=== PATIENT | male | born 1970 | race Caucasian/White ===

== ENCOUNTER 2016-12-30 11:14 | Inpatient (IN) | payer OTHER ==
[~2016-12-30] VITALS: Ht 167.6 cm; Wt 71.7 kg
[2016-12-30 11:15] VITALS: BP 114/82
[2016-12-30] MEDS ORDERED: MIRTAZAPINE45 MG (11:20)
[2016-12-30] MEDS ORDERED: KLONOPIN1 MG (11:20)
[2016-12-30] MEDS ORDERED: FAZACLO100 MG (11:20)
[2016-12-30] MEDS ORDERED: TRAZODONE HCL100 MG (11:20)
[2016-12-30] MEDS ORDERED: ARISTADA882 MG/3.2 (11:20)
[2016-12-30] MEDS ORDERED: Vancomycin 1 GM in D5W 275 ML IVPB ONE (11:30)
[2016-12-30] MEDS ORDERED: Vancomycin 1gm inj IVPB ONE (12:32)
[2016-12-30 12:39] LABS: APPEARANCE,URINE CLEAR; KETONES,URINE 3+ (NEGATIVE); LEUKOCYTE ESTERASE ,URINE 1+ (NEGATIVE); NITRITE,URINE NEGATIVE (NEGATIVE); PH,URINE 5 (4.5-8.0); PROTEIN,URINE 1+ (NEGATIVE); UROBILINOGEN,URINE 4 MG/DL (0.0-1.0)
[2016-12-30 12:40] LABS: BASOPHILS % (AUTO) 0.9 % (0.0-2.0); LYMPHOCYTES % (AUTO) 39.7 % (20.0-45.0); MEAN CORPUSCULAR HGB CONC 34.9 G/DL (32.0-36.0); MEAN CORPUSCULAR VOLUME 89 FL (80-99); MEAN PLATELET VOLUME 6.5 FL (6.5-10.1); MONOCYTES % (AUTO) 8.1 % (1.0-10.0); NEUTROPHILS % (AUTO) 51.3 % (45.0-75.0); PLATELET COUNT 194 K/UL (150-450); RED CELL DISTRIBUTION WIDTH 11.9 % (11.6-14.8); WHITE BLOOD COUNT 5.2 K/UL (4.8-10.8)
[2016-12-30 12:47] LABS: PROTHROMBIN TIME 10.5 SEC (9.30-11.50)
[2016-12-30 12:50] LABS: BACTERIA,URINE FEW /HPF; SQUAMOUS EPITHELIAL CELL,UR OCCASIONAL /LPF (NONE/OCC)
[2016-12-30 12:51] LABS: ICTOTEST NEGATIVE; MUCUS,URINE MODERATE /LPF (NONE/OCC)
--- NOTE | 2016-12-30 12:51 | Diagnostic Imaging Report ---
Indication: COUGH Technique: One view of the chest Comparison: none Findings: Lungs and pleural spaces are clear. Heart size is normal. Impression: No acute process
[2016-12-30 13:03] LABS: ALANINE AMINOTRANSFERASE 30 U/L (3-41); ALBUMIN/GLOBULIN RATIO 1.9 (1.0-2.7); ANION GAP 16 (5-15); ASPARTATE AMINO TRANSFERASE 45 U/L (5-40); CALCIUM 9.2 mg/dL (8.6-10.2); CARBON DIOXIDE 25 mEQ/L (20-30); CHLORIDE 101 mEQ/L (98-107); CREATININE 0.9 mg/dL (0.7-1.2); GLOMERULAR FILTRATION RATE > 60 mL/min (>60); HEMOLYSIS 26; LIPASE 28 U/L (< 60); POTASSIUM 3.5 mEQ/L (3.4-4.9); SODIUM 142 mEQ/L (135-145); TOTAL PROTEIN 6.4 g/dL (6.6-8.7)
[2016-12-30 13:23] LABS: CKMB 13.1 ng/mL (< 6.7)
[2016-12-30 13:37] LABS: TROPONIN I < 0.30 ng/mL (<=0.30)
[2016-12-30 13:44] LABS: BILIRUBIN,DIRECT 0.2 mg/dL (0.1-0.3)
--- NOTE | 2016-12-30 14:14 | Emergency Room Report ---
History of Present Illness General Chief Complaint: Overdose Source: Patient, EMS Present Illness HPI Patient presents emergency department today with acute altered mental status. Patient reportedly has a history of drug or psychiatric history. Was at a center to obtain reimbursement or medications. Developed acute onset of altered mental status and was brought here for further evaluation. Patient apparently had a history of fall and has a wound on his right side of the face that is poorly healing cellulitic and erythematous. Patient denies any discharge. No other complaints are noted. Symptoms noted to be moderate to severe.No other modifying factors. No other associated signs and symptoms. No other complaints were noted. Allergies: Coded Allergies: No Known Allergies (Unverified , 12/30/16) Patient History Past Medical History: psych hx Past Surgical History: none Pertinent Family History: none Social History: Reports: drug use Reviewed Nursing Documentation: PMH: Agreed, PSxH: Agreed Nursing Documentation-PMH History Of Psychiatric Problem: Yes Review of Systems All Other Systems: negative except mentioned in HPI Physical Exam Vital Signs Date Time Temp Pulse Resp B/P Pulse Ox O2 Delivery O2 Flow Rate FiO2 12/30/16 11:08 97.3 98 16 114/82 98 Room Air Sp02 EP Interpretation: reviewed, normal General Appearance: moderate distress, lethargic Head: normocephalic, atraumatic Eyes: bilateral eye normal inspection ENT: hearing grossly normal, normal voice, other - right facial swelling, poorly healing wound Neck: normal inspection, full range of motion, supple, no bony tend Respiratory: normal inspection, lungs clear, normal breath sounds, no respiratory distress, no retraction, no wheezing Cardiovascular #1: regular rate, rhythm, no edema Gastrointestinal: normal inspection, normal bowel sounds, non tender, soft, no guarding, no hernia Genitourinary: no CVA tenderness Musculoskeletal: normal inspection, back normal, normal range of motion Neurologic: responsive, other - altered mental status, grossly nonfocal Psychiatric: depressed affect Skin: other - rash right-sided face consistent with cellulitis Medical Decision Making Diagnostic Impression: Primary Impression: Facial cellulitis Additional Impressions: Altered mental status, unspecified Drug abuse Rhabdomyolysis ER Course Patient presents emergency department today with acute altered mental status. Differential diagnoses include acute intracranial injury, facial fracture, facial infection, sepsis, drug abuse, seizure, electrolyte abnormality just to name a few.Given the severity of the patient's presentation I felt this is a highly complex patient. This patient required extensive workup. Patient exam is consistent with facial cellulitis. CT of the brain and face did not show any acute abnormality other than facial cellulitis. Patient was started on vancomycin. Patient had evidence rhabdomyolysis and was given a liter fluid bolus. A she remained confused in emergency Department likely secondary to drug abuse. Therefore felt the patient require admission. Patient will be admitted to telemetry for further treatment. Case was discussed with Dr. Joe Chamberlain for admission. Labs Test 12/30/16 12:20 White Blood Count 5.2 K/UL (4.8-10.8) Red Blood Count 4.10 M/UL (4.70-6.10) Hemoglobin 12.7 G/DL (14.2-18.0) Hematocrit 36.4 % (42.0-52.0) Mean Corpuscular Volume 89 FL (80-99) Mean Corpuscular Hemoglobin 31.0 PG (27.0-31.0) Mean Corpuscular Hemoglobin Concent 34.9 G/DL (32.0-36.0) Red Cell Distribution Width 11.9 % (11.6-14.8) Platelet Count 194 K/UL (150-450) Mean Platelet Volume 6.5 FL (6.5-10.1) Neutrophils (%) (Auto) 51.3 % (45.0-75.0) Lymphocytes (%) (Auto) 39.7 % (20.0-45.0) Monocytes (%) (Auto) 8.1 % (1.0-10.0) Eosinophils (%) (Auto) 0.0 % (0.0-3.0) Basophils (%) (Auto) 0.9 % (0.0-2.0) Prothrombin Time 10.5 SEC (9.30-11.50) Prothromb Time International Ratio 1.0 (0.9-1.1) Activated Partial Thromboplast Time 24 SEC (23-33) Urine Color Yellow Urine Appearance Clear Urine pH 5 (4.5-8.0) Urine Specific [place] 1.030 (1.005-1.035) Urine Protein 1+ (NEGATIVE) Urine Glucose (UA) Negative (NEGATIVE) Urine Ketones 3+ (NEGATIVE) Urine Occult Blood Negative (NEGATIVE) Urine Nitrite Negative (NEGATIVE) Urine Bilirubin 1+ (NEGATIVE) Urine Ictotest Negative Urine Urobilinogen 4 MG/DL (0.0-1.0) Urine Leukocyte Esterase 1+ (NEGATIVE) Urine RBC 2-4 /HPF (0 - 0) Urine WBC 2-4 /HPF (0 - 0) Urine Squamous Epithelial Cells Occasional /LPF Urine Bacteria Few /HPF (NONE) Urine Mucus Moderate /LPF (NONE/OCC) Sodium Level 142 mEQ/L (135-145) Potassium Level 3.5 mEQ/L (3.4-4.9) Chloride Level 101 mEQ/L (98-107) Carbon Dioxide Level 25 mEQ/L (20-30) Anion Gap 16 (5-15) Blood Urea Nitrogen 19 mg/dL (7-23) Creatinine 0.9 mg/dL (0.7-1.2) Estimat Glomerular Filtration Rate > 60 mL/min (>60) Glucose Level 102 mg/dL (74-106) Calcium Level 9.2 mg/dL (8.6-10.2) Total Bilirubin 1.2 mg/dL (0.0-1.2) Direct Bilirubin 0.2 mg/dL (0.1-0.3) Aspartate Amino Transf (AST/SGOT) 45 U/L (5-40) Alanine Aminotransferase (ALT/SGPT) 30 U/L (3-41) Alkaline Phosphatase 72 U/L (40-129) Total Creatine Kinase 1166 U/L (38-174) Creatine Kinase MB 13.1 ng/mL (< 6.7) Creatine Kinase MB Relative Index 1.1 Troponin I < 0.30 ng/mL (<=0.30) Total Protein 6.4 g/dL (6.6-8.7) Albumin 4.2 g/dL (3.5-5.2) Globulin 2.2 g/dL Albumin/Globulin Ratio 1.9 (1.0-2.7) Lipase 28 U/L (< 60) Urine Opiates Screen Negative (NEGATIVE) Urine Barbiturates Screen Negative (NEGATIVE) Phencyclidine (PCP) Screen Negative (NEGATIVE) Urine Amphetamines Screen Positive (NEGATIVE) Urine Benzodiazepines Screen Positive (NEGATIVE) Urine Cocaine Screen Negative (NEGATIVE) Urine Marijuana (THC) Screen Positive (NEGATIVE) EKG Diagnostic Results Rate: normal Rhythm: NSR ST Segments: no acute changes Rhythm Strip Diag. Results EP Interpretation: yes Rate: 60s Rhythm: NSR, no PVC's, no ectopy Chest X-Ray Diagnostic Results Chest X-Ray Ordered: Yes # of Views/Limited/Complete: 1 View Interpretation: no consolidation, no effusion, no pneumothorax, no acute cardiopulmonary disease Indication: Chest Pain Impression: No acute disease Date Electronically Signed: Dec 30, 2016 Time Electronically Signed: 14:14 Interpreting ER Physician: by radiology Last Vital Signs Date Time Temp Pulse Resp B/P Pulse Ox O2 Delivery O2 Flow Rate FiO2 12/30/16 11:15 98 16 Room Air 12/30/16 11:15 97.3 114/82 98 Status: improved Disposition: ADMITTED INPATIENT Condition: Serious Referrals: [facility],REFERRING (PCP) NICK CEDEÑO M.D. Dec 30, 2016 14:14
[2016-12-30 14:21] VITALS: BP 112/61
--- NOTE | 2016-12-30 15:17 | Diagnostic Imaging Report ---
Indication: TRAUMA altered level of consciousness, lethargic, overdose Technique: Continuous helical CT scanning of the head was performed without intravenous contrast material. Axial and coronal 5 mm sections were generated. Radiation dose was minimized using automated exposure control Dose: Total Dose Length Product - DLP [address] Dose Index - CTDIvol(s) 70.38 mGy. Comparison: None Findings: The ventricular system is normal in size and configuration. There is no shift of midline structures. No abnormal extra-axial fluid collections are noted. There is no evidence of intracerebral bleeding. No other abnormal high or low density areas are noted within the brain. The included orbits and sinuses are unremarkable. The calvarium is intact. There is right periorbital soft tissue swelling. Possible small radiopaque foreign bodies versus cutaneous calcifications are seen in the subcutaneous tissues in this area. There is a chronic appearing medial right orbital wall defect Impression: Negative for acute intracranial bleed or mass effect Other findings as described The CT scanner at [facility] is accredited by the [employer] and the scans are performed using protocols designed to limit radiation exposure to as low as reasonably achievable to attain images of sufficient resolution adequate for diagnostic evaluation.
--- NOTE | 2016-12-30 15:17 | Diagnostic Imaging Report ---
Indications: TRAUMA, facial abrasion Technique: Spiral images obtained through the facial bones. No IV contrast utilized. Multiplanar reconstructions were generated.Total dose length product 630 mGycm. CTDIvol(s) 28mGy. Dose reduction achieved using automated exposure control Comparison: None Findings: There is some image degradation due to patient motion. Surgical hardware seen reducing old healed right mandibular ramus and left mandibular body fractures. No acute fractures. There is questionably an old zygomatic arch fracture deformity on the left. There is the medial right orbital wall defect with fat herniated into the defect. The sinuses are clear. The nasal septum is midline. There is soft tissue swelling in the right malar and periorbital region. Small punctate opacities in the skin and subcutaneous region in the right malar region the area of swelling could indicate small foreign bodies. There is evidence of extensive dental disease. A large lucency surrounds the apex of the left mandibular canine tooth, consistent with apical root abscess. This measures approximately 1 cm diameter. There is evidence of extensive dental caries. Lucencies are seen involving the posterior maxillary alveolar ridge bilaterally, likely indicating molar apical root abscesses. The optic globes are intact. The retroseptal orbits are unremarkable. Impression: No acute bony trauma Evidence of right periorbital and malar soft tissue trauma. Small punctate foreign bodies are not excludable Evidence of extensive dental disease, as described above, including dental caries and multiple likely apical root abscesses Evidence of old trauma, with evidence of prior surgical repair of healed mandibular fractures,, right medial orbital wall defect which may be posttraumatic, and equivocal old left zygomatic arch fracture deformity. The CT scanner at [facility] is accredited by the [employer] and the scans are performed using protocols designed to limit radiation exposure to as low as reasonably achievable to attain images of sufficient resolution adequate for diagnostic evaluation.
[2016-12-30] MEDS ORDERED: Milk of Magnesia 30ml Ud ORAL PRN (17:15)
[2016-12-30 18:34] VITALS: BP 111/67
[2016-12-30 19:48] VITALS: BP 112/67
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
[2016-12-30 20:57] VITALS: BP 125/77
[2016-12-30] MEDS: Vancomycin 1250mg/D5W 275ml IVPB SCH ×2 (21:46)
[2016-12-30] MEDS: Heparin 5000 units/ml inj SUBQ SCH (21:59)
[2016-12-30] MEDS ORDERED: TRAZODONE HCL100 MG ORAL (23:50)
[2016-12-30] MEDS ORDERED: FAZACLO100 MG ORAL (23:50)
[2016-12-30] MEDS ORDERED: CLOZAPINE ODT100 MG PO (23:50)
[2016-12-30] MEDS ORDERED: MIRTAZAPINE45 MG ORAL (23:50)
[2016-12-30] MEDS ORDERED: KLONOPIN1 MG ORAL (23:50)
[2016-12-30 23:54] VITALS: BP 127/68
[2016-12-30] MEDS ORDERED: ARISTADA882 MG/3.2 PO (23:56)
[2016-12-31 04:06] VITALS: BP 121/75
[2016-12-31 07:07] LABS: BASOPHILS % (AUTO) 0.6 % (0.0-2.0); LYMPHOCYTES % (AUTO) 30.6 % (20.0-45.0); MEAN CORPUSCULAR HEMOGLOBIN 31.6 PG (27.0-31.0); MEAN CORPUSCULAR HGB CONC 35.4 G/DL (32.0-36.0); MEAN CORPUSCULAR VOLUME 89 FL (80-99); NEUTROPHILS % (AUTO) 61.8 % (45.0-75.0); PLATELET COUNT 179 K/UL (150-450); RED BLOOD COUNT 3.68 M/UL (4.70-6.10); RED CELL DISTRIBUTION WIDTH 12.1 % (11.6-14.8); WHITE BLOOD COUNT 5.1 K/UL (4.8-10.8)
[2016-12-31 07:47] LABS: ALANINE AMINOTRANSFERASE 21 U/L (3-41); ALBUMIN/GLOBULIN RATIO 1.6 (1.0-2.7); ANION GAP 12 (5-15); ASPARTATE AMINO TRANSFERASE 23 U/L (5-40); CALCIUM 8.1 mg/dL (8.6-10.2); CARBON DIOXIDE 25 mEQ/L (20-30); CHLORIDE 107 mEQ/L (98-107); CREATININE 0.8 mg/dL (0.7-1.2); GLOMERULAR FILTRATION RATE > 60 mL/min (>60); HEMOLYSIS 2; POTASSIUM 3.6 mEQ/L (3.4-4.9); SODIUM 144 mEQ/L (135-145); TOTAL PROTEIN 5.1 g/dL (6.6-8.7)
[2016-12-31 08:00] VITALS: BP 96/65
[2016-12-31] MEDS ORDERED: ARISTADA882 MG/3.2 IM (10:33)
[2016-12-31] MEDS ORDERED: CLOZAPINE ODT200 MG PO ×2 (10:46→11:12)
[2016-12-31] MEDS: Vancomycin 1250mg/D5W 275ml IVPB SCH ×4 (11:27→20:46)
[2016-12-31] MEDS: Heparin 5000 units/ml inj SUBQ SCH ×2 (11:27→20:46)
--- NOTE | 2016-12-31 11:28 | Wound Care Consultation ---
Wound Assessment Wound Assessment #1: Wound Present on Admission: Yes New Wound: No Status Change of Wound: No Wound Location Body Site Modif: right Wound Location Body Site: face - extending to periorbital and upper cheek area. Wound Type: traumatic injury - with possible cellulitis , etiology unknown. Lebron Test: Does not Lebron Wound Thickness: Full Thickness Wound Length: 9.0 Wound Width: 8.0 Wound Depth: utd Percent of Wound [place]/Red: 50 Percent of Wound Black/Brown: 50 - scab Wound Drainage Description: Serosanguineous Wound Drainage Amount: Scant Wound Drainage Odor: None/Absent Tissue Surrounding Wound: Edematous - erythemic Wound General Appearance: Reddened, Blackened - scab, Draining Wound Assessment #2: Wound Number: #2 Wound Present on Admission: Yes New Wound: No Status Change of Wound: No Wound Location Body Site Modif: right Wound Location Body Site: knee Wound Type: traumatic injury - etiology unknown.with scab formation. Lebron Test: Does not Lebron Wound Thickness: Full Thickness Wound Length: 2.0 Wound Width: 2.0 Wound Depth: utd Percent of Wound [place]/Red: 50 Percent of Wound Black/Brown: 50 - scab Wound Drainage Description: Serosanguineous Wound Drainage Amount: Scant Wound Drainage Odor: None/Absent Tissue Surrounding Wound: Erythemic Wound General Appearance: Reddened, Blackened Wound Assessment #3: Wound Number: #3 Wound Present on Admission: Yes New Wound: No Status Change of Wound: No Wound Location Body Site Modif: left, lower Wound Location Body Site: leg Wound Type: traumatic injury - etiology unknown. with scab formation. Lebron Test: Does not Lebron Wound Thickness: Full Thickness Wound Length: 3.0 Wound Width: 2.0 Wound Depth: utd Percent of Wound [place]/Red: 50 Percent of Wound Black/Brown: 50 - scab Wound General Appearance: Reddened, Blackened Wound Assessment #4: Wound Number: #4 Wound Present on Admission: Yes New Wound: No Status Change of Wound: No Wound Location Body Site Modif: right Wound Location Body Site: hand Wound Type: scab - scattered. Lebron Test: Does not Lebron Wound Thickness: Partial Thickness Percent of Wound Black/Brown: 100 - scabs Wound Drainage Amount: None Wound Drainage Odor: None/Absent Tissue Surrounding Wound: Intact Wound General Appearance: Reddened, Blackened Wound Assessment #5: Wound Number: #5 Wound Present on Admission: Yes New Wound: No Status Change of Wound: No Wound Location Body Site Modif: left Wound Location Body Site: hand - and left 4th finger Wound Type: scab - scattered. Lebron Test: Does not Lebron Wound Thickness: Partial Thickness Percent of Wound Black/Brown: 100 - scabs Wound Drainage Amount: None Wound Drainage Odor: None/Absent Tissue Surrounding Wound: Intact Wound General Appearance: Reddened, Blackened Wound Comment #1 Right side face extending to periorbital and upper cheek traumatic injury with possible cellulitis. #2 Right knee traumatic injury with scab appearing. #3 Left lower leg traumatic injury with scab appearing. #4 Right hand scattered scabs. #5 Left hand and left 4th finger scattered scabs. Recommendation. - Local wound care as ordered. - Keep clean and dry. - Turn and reposition. - Offload affected sites. - Optimize nutrition. - Assess and notify MD for any changes of condition noted to skin. FLACO CORDERO Dec 31, 2016 11:28
[2016-12-31 12:00] VITALS: BP 101/54
--- NOTE | 2016-12-31 14:35 | General Progress Note ---
Assessment/Plan Problem List: (1) Schizophrenia ICD Codes: F20.9 - Schizophrenia, unspecified SNOMED: 43446951 (2) Bradycardia ICD Codes: R00.1 - Bradycardia, unspecified SNOMED: 99444691 (3) Drug abuse ICD Codes: F19.10 - Other psychoactive substance abuse, uncomplicated SNOMED: 62018774 (4) Rhabdomyolysis ICD Codes: M62.82 - Rhabdomyolysis SNOMED: 693277805 (5) Facial cellulitis ICD Codes: L03.211 - Cellulitis of face SNOMED: 152877167 (6) Altered mental status, unspecified ICD Codes: R41.82 - Altered mental status, unspecified SNOMED: 602974908 Assessment/Plan continue vanco, tele, check thyroid status Subjective Constitutional: Reports: weakness HEENT: Reports: no symptoms Cardiovascular: Reports: no symptoms Respiratory: Reports: no symptoms Gastrointestinal/Abdominal: Reports: no symptoms Genitourinary: Reports: no symptoms Neurologic/Psychiatric: Reports: pre-existing deficit Endocrine: Reports: no symptoms Hematologic/Lymphatic: Reports: no symptoms Allergies: Coded Allergies: No Known Allergies (Unverified , 12/30/16) Objective Last 24 Hour Vital Signs Date Time Temp Pulse Resp B/P Pulse Ox O2 Delivery O2 Flow Rate FiO2 12/31/16 12:00 97.5 54 18 101/54 95 Room Air 12/31/16 08:00 97.5 65 18 96/65 98 Room Air 12/31/16 04:06 98.6 70 20 121/75 94 Room Air 12/31/16 04:00 64 12/31/16 00:00 68 12/30/16 23:54 98.3 68 21 127/68 97 Room Air 12/30/16 20:57 97.6 60 20 125/77 98 Room Air 12/30/16 20:01 97.9 64 16 112/67 98 Room Air 12/30/16 19:48 97.9 64 16 112/67 98 Room Air 12/30/16 18:34 62 15 111/67 100 Room Air Intake and Output 12/30/16 12/31/16 19:00 07:00 Intake Total 1555.0 ml Output Total 500 ml Balance 1055.0 ml Intake Oral 240 ml IV Total 1315.0 ml Output Urine Total 500 ml # Voids 1 3 Laboratory Tests 12/31/16 05:15: White Blood Count 5.1, Red Blood Count 3.68L, Hemoglobin 11.6L, Hematocrit 32.8L , Mean Corpuscular Volume 89, Mean Corpuscular Hemoglobin 31.6H, Mean Corpuscular Hemoglobin Concent 35.4, Red Cell Distribution Width 12.1, Platelet Count 179, Mean Platelet Volume 7.0, Neutrophils (%) (Auto) 61.8, Lymphocytes (% ) (Auto) 30.6, Monocytes (%) (Auto) 7.0, Eosinophils (%) (Auto) 0.0, Basophils ( %) (Auto) 0.6, Sodium Level 144, Potassium Level 3.6, Chloride Level 107, Carbon Dioxide Level 25, Anion Gap 12, Blood Urea Nitrogen 14, Creatinine 0.8, Estimat Glomerular Filtration Rate > 60, Glucose Level 107H, Calcium Level 8.1L , Total Bilirubin 0.8, Aspartate Amino Transf (AST/SGOT) 23, Alanine Aminotransferase (ALT/SGPT) 21, Alkaline Phosphatase 58, Total Creatine Kinase 513H, Total Protein 5.1L, Albumin 3.2L, Globulin 1.9, Albumin/Globulin Ratio 1.6 Height (Feet): 5 Height (Inches): 6.00 Weight (Pounds): 158 General Appearance: no apparent distress EENT: PERRL/EOMI Neck: normal alignment Cardiovascular: regular rhythm, bradycardia Respiratory/Chest: lungs clear Abdomen: non tender Extremities: normal range of motion Edema: no edema noted Arm (L), no edema noted Arm (R), no edema noted Leg (L), no edema noted Leg (R), no edema noted Pedal (L), no edema noted Pedal (R), no edema noted Generalized Neurologic: program lead II-XII grossly normal, other - slow of speech Skin: other - scabs on face, mild redness, edema r periorbital ESTRELLA SINGLETON Dec 31, 2016 14:35
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
[2016-12-31 16:00] VITALS: BP 110/61
[2016-12-31 20:17] VITALS: BP 103/60
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
[2016-12-31 23:59] VITALS: BP 113/65
[2017-01-01 03:51] VITALS: BP 119/73
[2017-01-01 08:00] VITALS: BP 97/55
[2017-01-01 09:12] LABS: BASOPHILS % (AUTO) 0.4 % (0.0-2.0); EOSINOPHILS % (AUTO) 0.1 % (0.0-3.0); LYMPHOCYTES % (AUTO) 30.8 % (20.0-45.0); MEAN CORPUSCULAR HEMOGLOBIN 31.6 PG (27.0-31.0); MEAN CORPUSCULAR HGB CONC 34.9 G/DL (32.0-36.0); MEAN CORPUSCULAR VOLUME 91 FL (80-99); MEAN PLATELET VOLUME 7.2 FL (6.5-10.1); MONOCYTES % (AUTO) 6.4 % (1.0-10.0); NEUTROPHILS % (AUTO) 62.2 % (45.0-75.0); PLATELET COUNT 174 K/UL (150-450); RED BLOOD COUNT 3.66 M/UL (4.70-6.10); RED CELL DISTRIBUTION WIDTH 12.1 % (11.6-14.8); WHITE BLOOD COUNT 3.9 K/UL (4.8-10.8)
[2017-01-01 09:45] LABS: ANION GAP 12 (5-15); CALCIUM 8.7 mg/dL (8.6-10.2); CARBON DIOXIDE 25 mEQ/L (20-30); CHLORIDE 106 mEQ/L (98-107); CREATININE 0.8 mg/dL (0.7-1.2); GLOMERULAR FILTRATION RATE > 60 mL/min (>60); HEMOLYSIS 9; POTASSIUM 4.2 mEQ/L (3.4-4.9); SODIUM 143 mEQ/L (135-145)
[2017-01-01] MEDS ORDERED: Tubing IV Secondary IV ONE (09:58)
[2017-01-01] MEDS: ARIPiprazole 10mg tab ORAL SCH ×2 (10:01→17:32)
[2017-01-01] MEDS: Vancomycin 1250mg/D5W 275ml IVPB SCH ×2 (10:01)
[2017-01-01] MEDS: Heparin 5000 units/ml inj SUBQ SCH (10:04)
[2017-01-01 10:36] LABS: TROPONIN I < 0.30 ng/mL (<=0.30)
[2017-01-01 12:00] VITALS: BP 114/69
[2017-01-01 16:02] VITALS: BP 111/74
--- NOTE | 2017-01-01 16:27 | Physician Query ---
PLEASE COMPLETE DOCUMENT BEFORE SIGNING Dear Dr. Nazario Date: __01/01/2017 [facility] Name: _David Salinas MD [facility] Phone #_Ext. [phone]___ Exercise your independent professional judgment when responding to query. Question asked do not imply a particular answer is desired/expected. Clinical Documentation States: "Altered Mental Status" documented in Dr. Chamberlain's Progress Notes from 12/31/2016 & ED Provider Note Clinical Findings Show: "Drug Abuse" & "Rhabdomyolysis" as per Dr. Chamberlain's Progress Notes from 12/31/2016 & ED Provider Note Please indicate the nature and chronicity of the condition below: [] Metabolic Encephalopathy [] Toxic Encephalopathy [] Toxic - Metabolic Encephalopathy [] Progressive Encephalopathy [] Encephalopathy, Other [] Other: [] Not Applicable Severity [] Acute [] Chronic [] Acute on Chronic [] Unable to determine Condition Present on Admission: [] Yes [] No []Clinically Undeterminable Please also document in your Progress Notes and/or Discharge Summary and indicate if the condition was present on admission. Joe Chamberlain MD Date & Time MTDD
[2017-01-01] MEDS ORDERED: Vancomycin 1.5 GM in D5W 325 ML IVPB SCH (21:00)
--- NOTE | 2017-01-02 | Progress Note ---
DATE: 12/30/2016 SUBJECTIVE: The patient is doing well. No behavioral issues. The patient does not endorse any psychotic symptoms. No depressive symptoms. He is stable, compliant with medications. Appetite is adequate. MENTAL STATUS EXAMINATION: The patient is alert and oriented x4. His mood is irritable today. Affect was constricted. Congruent with mood. Thought process is concrete. Thought content, no suicidal or homicidal ideation. The patient will be continued on Abilify. Provide the patient with supportive therapy and reality orientation. We will continue to follow and readjust the medication. Kayleigh Kessler M.D. DR: SUSSY JOB#: [id number] CC:
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
--- NOTE | 2017-01-08 19:16 | Cardiology Report ---
APPROVED REPORT EKG Measurement Heart [id number] Normal sinus rhythm Nonspecific T wave abnormality Prolonged QT Abnormal ECG
== END 2017-01-01 20:00 | disposition home or self-care (01) | DRG 603 ==
LOC: EDBD 11:14 → EMR 12:15 → 2E 12:23 → EDBEDREQ 13:00
DX: L03.211 Cellulitis of face (principal); M62.82 Rhabdomyolysis; E44.1 Mild protein-calorie malnutrition; R41.82 Altered mental status, unspecified; F20.9 Schizophrenia, unspecified; R00.1 Bradycardia, unspecified; F15.10 Other stimulant abuse, uncomplicated; F12.10 Cannabis abuse, uncomplicated; F13.10 Sedative, hypnotic or anxiolytic abuse, uncomplicated; S00.81XA Abrasion of other part of head, initial encounter; V19.9XXA Pedal cyclist (driver) (passenger) injured in unspecified traffic accident, initial encounter; F17.200 Nicotine dependence, unspecified, uncomplicated
CPT/HCPCS: 36415; 70450; 70486; 71010; 80048; 80053; 80202; 80300; 81003; 82248; 82550; 82553; 83690; 84439; 84443; 84484; 85025; 85610; 85730; 87040; 87081; 93005